=== PATIENT | male | born 1945 | race Caucasian/White ===

== ENCOUNTER 2016-12-19 10:00 | Observation (INO) | payer MEDICARE, BC ==
[2016-12-19] MEDS ORDERED: Aspirin 81 MG Tab.Chew PO ONE (10:11)
[2016-12-19] MEDS ORDERED: Sodium Chloride 0.9% 10 ML Syringe FLUSH PRN (10:11)
[2016-12-19] MEDS ORDERED: Sodium Chloride 0.9% 2.5 ML Syringe FLUSH PRN (10:11)
[2016-12-19] MEDS ORDERED: Sodium Chloride 0.9% 1,000 ML IV SCH (10:15)
--- NOTE | 2016-12-19 10:15 | EDM.PDOC ---
ED HPI GENERAL MEDICAL PROBLEM - General Chief Complaint: Chest Pain Stated Complaint: CHEST PAIN Time Seen by Provider: 12/19/16 10:01 - History of Present Illness INITIAL COMMENTS - FREE TEXT/NARRATIVE: HISTORY AND PHYSICAL: History of present illness: Patient 71-year-old white male past medical history significant for diabetes who has a undefined history of colonic disease causing diarrhea he sees a clinic and gets infusions monthly this condition initially caused a profound weight loss approximately 80 pounds pounds he has had improvement since therapy was initiated he denies history of known coronary artery disease denies history of stroke presents with a chief complaint of chest pain this woke him from sleep approximately 3 AM was described as sharp left-sided with associated shortness of breath there is no diaphoresis or palpitations are less proximal 10 minutes he had to subsequent brief episodes since upon arrival he is without pain or other symptomatology Review of systems: As per history of present illness and below otherwise all systems reviewed and negative. Past medical history: As per history of present illness and as reviewed below otherwise noncontributory. Surgical history: As per history of present illness and as reviewed below otherwise noncontributory. Social history: No reported history of drug or alcohol abuse. Family history: As per history of present illness and as reviewed below otherwise noncontributory. Physical exam: HEENT: Atraumatic, normocephalic, pupils reactive, negative for conjunctival pallor or scleral icterus, mucous membranes moist, throat clear, neck supple, nontender, trachea midline. Lungs: Clear to auscultation, breath sounds equal bilaterally, chest nontender. Heart: S1S2, regular, negative for clicks, rubs, or JVD. Abdomen: Soft, nondistended, nontender. Negative for masses or hepatosplenomegaly. Negative for costovertebral tenderness. Pelvis: Stable nontender. Genitourinary: Deferred. Rectal: Deferred. Extremities: Atraumatic, negative for cords or calf pain. Neurovascular unremarkable. Neuro: Awake, alert, oriented. Cranial nerves II through XII unremarkable. Cerebellum unremarkable. Motor and sensory unremarkable throughout. Exam nonfocal. Diagnostics: CBC CMP troponin PT/INR chest x-ray EKG Therapeutics: IV O2 monitor aspirin Impression: #1 chest pain #2 history diabetes Definitive disposition and diagnosis as appropriate pending reevaluation and review of above. - Related Data Allergies Allergy/AdvReac Type Severity Reaction Status Date / Time No Known Allergies Allergy Verified 12/19/16 10:09 Home Meds: Home Meds Escitalopram Oxalate 10 mg PO DAILY 09/02/14 [History] atorvaSTATin Calcium [Atorvastatin Calcium] 40 mg PO DAILY 09/02/14 [History] Dicyclomine [Bentyl] 10 mg PO Q4H PRN 12/19/16 [History] Esomeprazole [NexIUM] 40 mg PO ACBREAKFAST 12/19/16 [History] Ferrous Sulfate 325 mg PO TID 12/19/16 [History] Insulin Glarg,Human.Rec.Analog [LantUS Solostar] 50 units SUBCUT BEDTIME [History] Latanoprost 1 drop OP DAILY 12/19/16 [History] Lisinopril 10 mg PO DAILY 12/19/16 [History] Potassium Chloride 20 meq PO DAILY 12/19/16 [History] azaTHIOprine [Imuran] 50 mg PO DAILY 12/19/16 [History] predniSONE [Prednisone] 10 mg PO DAILY 12/19/16 [History] Social & Family History - Tobacco Use Smoking Status *Q: Never Smoker - Alcohol Use Days Per Week of Alcohol Use: 0 Number of Drinks Per Day: 0 Total Drinks Per Week: 0 - Recreational Drug Use Recreational Drug Use: No ED ROS GENERAL - Review of Systems Review Of Systems: ROS reveals no pertinent complaints other than HPI. ED EXAM, GENERAL - Physical Exam Exam: See Below (See dictation) Course - Vital Signs Last Recorded V/S: Last Vital Signs Temp 36.2 C 12/19/16 10:05 Pulse 88 12/19/16 10:47 Resp 15 12/19/16 10:47 BP 154/86 H 12/19/16 10:47 Pulse Ox 95 12/19/16 10:47 - Orders/Labs/Meds Orders: Active Orders 24 hr Category Date Time Status Cardiac Monitoring [RC] . DIRECTED Care 12/19/16 10:10 Active EKG 12 Lead [EKG Documentation Completion] [RC] STAT Care 12/19/16 10:10 Active EKG Documentation Completion [RC] STAT Care 12/19/16 10:10 Active Oxygen Therapy, ED [RC] ASDIRECTED Care 12/19/16 10:10 Active Pulse Oximetry [RC] ASDIRECTED Care 12/19/16 10:10 Active Sodium Chloride 0.9% [Normal Saline] 1,000 ml Med 12/19/16 10:15 Active IV STAT Sodium Chloride 0.9% [Saline Flush] Med 12/19/16 10:11 Active 10 ml FLUSH ASDIRECTED PRN Sodium Chloride 0.9% [Saline Flush] Med 12/19/16 10:11 Active 2.5 ml FLUSH ASDIRECTED PRN Saline Lock Insert [OM.PC] Stat Oth 12/19/16 10:10 Ordered Medication Orders Sodium Chloride (Normal Saline) 1,000 mls @ 125 mls/hr IV STAT HILDA Last Admin: 12/19/16 10:41 Dose: 125 mls/hr Sodium Chloride (Saline Flush) 10 ml FLUSH ASDIRECTED PRN PRN Reason: Keep Vein Open Last Admin: 12/19/16 10:41 Dose: 10 ml Sodium Chloride (Saline Flush) 2.5 ml FLUSH ASDIRECTED PRN PRN Reason: Keep Vein Open Last Admin: 12/19/16 10:41 Dose: 2.5 ml Labs: Laboratory Tests 12/19/16 12/19/16 12/19/16 Range/Units 10:02 10:02 10:02 WBC 7.44 (4.0-11.0) K/uL RBC 3.97 L (4.50-5.90) M/uL Hgb 13.1 (13.0-17.0) g/dL Hct 39.5 (38.0-50.0) % MCV 99.5 H (80.0-98.0) fL MCH 33.0 H (27.0-32.0) pg MCHC 33.2 (31.0-37.0) g/dL RDW Std Deviation 50.3 (28.0-62.0) fl RDW Coeff of Eh 14 (11.0-15.0) % Plt Count 126 L (150-400) K/uL MPV 11.70 (7.40-12.00) fL Add Manual Diff YES Neutrophils % (Manual) 55 (48.0-80.0) % Band Neutrophils % 3 % Lymphocytes % (Manual) 31 (16.0-40.0) % Monocytes % (Manual) 11 (0.0-15.0) % Absolute Seg Neuts 4.1 Band Neutrophils # 0.2 Lymphocytes # (Manual) 2.3 Monocytes # (Manual) 0.8 INR 1.12 H (0.86-1.11) Sodium 135 L (136-146) mmol/L Potassium 3.4 L (3.5-5.1) mmol/L Chloride 101 (98-110) mmol/L Carbon Dioxide 27 (21-31) mmol/L BUN 5 L (6.0-23.0) mg/dL Creatinine 0.8 (0.6-1.5) mg/dL Est Cr Clr Drug Dosing 94.33 mL/min Estimated GFR (MDRD) > 60.0 ml/min Glucose 131 H (60-110) mg/dL POC Glucose (60-110) mg/dL Calcium 8.5 L (8.8-10.8) mg/dL Total Bilirubin 0.6 (0.1-1.5) mg/dL AST 18 (5-40) IU/L ALT 18 (8-54) IU/L Alkaline Phosphatase 209 H (40-150) Troponin I (0.0-0.29) NG/ML Total Protein 8.2 H (6.0-8.0) g/dL Albumin 3.4 (3.4-4.8) g/dL Globulin 4.8 H (2.0-3.5) g/dL Albumin/Globulin Ratio 0.7 L (1.3-2.8) 12/19/16 12/19/16 Range/Units 10:02 10:06 WBC (4.0-11.0) K/uL RBC (4.50-5.90) M/uL Hgb (13.0-17.0) g/dL Hct (38.0-50.0) % MCV (80.0-98.0) fL MCH (27.0-32.0) pg MCHC (31.0-37.0) g/dL RDW Std Deviation (28.0-62.0) fl RDW Coeff of Eh (11.0-15.0) % Plt Count (150-400) K/uL MPV (7.40-12.00) fL Add Manual Diff Neutrophils % (Manual) (48.0-80.0) % Band Neutrophils % % Lymphocytes % (Manual) (16.0-40.0) % Monocytes % (Manual) (0.0-15.0) % Absolute Seg Neuts Band Neutrophils # Lymphocytes # (Manual) Monocytes # (Manual) INR (0.86-1.11) Sodium (136-146) mmol/L Potassium (3.5-5.1) mmol/L Chloride (98-110) mmol/L Carbon Dioxide (21-31) mmol/L BUN (6.0-23.0) mg/dL Creatinine (0.6-1.5) mg/dL Est Cr Clr Drug Dosing mL/min Estimated GFR (MDRD) ml/min Glucose (60-110) mg/dL POC Glucose 113 H (60-110) mg/dL Calcium (8.8-10.8) mg/dL Total Bilirubin (0.1-1.5) mg/dL AST (5-40) IU/L ALT (8-54) IU/L Alkaline Phosphatase (40-150) Troponin I < 0.10 (0.0-0.29) NG/ML Total Protein (6.0-8.0) g/dL Albumin (3.4-4.8) g/dL Globulin (2.0-3.5) g/dL Albumin/Globulin Ratio (1.3-2.8) Meds: Medications Generic Name Dose Route Start Last Admin Trade Name Freq PRN Reason Stop Dose Admin Sodium Chloride 1,000 mls @ 125 mls/hr 12/19/16 10:15 12/19/16 10:41 Normal Saline IV 125 mls/hr STAT HILDA Administration Sodium Chloride 10 ml 12/19/16 10:11 12/19/16 10:41 Saline Flush FLUSH 10 ml ASDIRECTED PRN Administration Keep Vein Open Sodium Chloride 2.5 ml 12/19/16 10:11 12/19/16 10:41 Saline Flush FLUSH 2.5 ml ASDIRECTED PRN Administration Keep Vein Open Discontinued Medications Generic Name Dose Route Start Last Admin Trade Name Freq PRN Reason Stop Dose Admin Aspirin 324 mg 12/19/16 10:11 12/19/16 10:40 Aspirin PO 12/19/16 10:12 324 mg ONETIME ONE Administration Departure - Departure Time of Disposition: 11:56 Disposition: Refer to Observation Condition: Good Clinical Impression: Chest pain - Discharge Information Referrals: PCP,None [Primary Care Provider] - Forms: ED Department Discharge - My Orders Last 24 Hours: My Active Orders 12/19/16 10:10 Cardiac Monitoring [RC] . DIRECTED EKG 12 Lead [EKG Documentation Completion] [RC] STAT EKG Documentation Completion [RC] STAT Oxygen Therapy, ED [RC] ASDIRECTED Pulse Oximetry [RC] ASDIRECTED Saline Lock Insert [OM.PC] Stat 12/19/16 10:11 Sodium Chloride 0.9% [Saline Flush] 10 ml FLUSH ASDIRECTED PRN Sodium Chloride 0.9% [Saline Flush] 2.5 ml FLUSH ASDIRECTED PRN 12/19/16 10:15 Sodium Chloride 0.9% [Normal Saline] 1,000 ml IV STAT - Assessment/Plan Last 24 Hours: My Active Orders 12/19/16 10:10 Cardiac Monitoring [RC] . DIRECTED EKG 12 Lead [EKG Documentation Completion] [RC] STAT EKG Documentation Completion [RC] STAT Oxygen Therapy, ED [RC] ASDIRECTED Pulse Oximetry [RC] ASDIRECTED Saline Lock Insert [OM.PC] Stat 12/19/16 10:11 Sodium Chloride 0.9% [Saline Flush] 10 ml FLUSH ASDIRECTED PRN Sodium Chloride 0.9% [Saline Flush] 2.5 ml FLUSH ASDIRECTED PRN 12/19/16 10:15 Sodium Chloride 0.9% [Normal Saline] 1,000 ml IV STAT
[2016-12-19 11:04] LABS: CHLORIDE,CL 101 mmol/L (98-110); SODIUM,NA 135 mmol/L (136-146)
--- NOTE | 2016-12-19 11:17 | CR ---
EXAMINATION: Portable chest radiograph. HISTORY: Shortness of breath. FINDINGS: The trachea is midline. The cardiomediastinal silhouette is within normal limits. No pulmonary infil trates, effusions or pneumothorax. Osseous structures appear unremarkable. IMPRESSION: No acute cardiopulmonary process.
[2016-12-19] MEDS ORDERED: Acetaminophen 325 MG Tab PO PRN (12:37)
[2016-12-19] MEDS ORDERED: Dicyclomine 10 MG Cap PO PRN (12:44)
--- NOTE | 2016-12-19 12:48 | PCM.HP ---
H&P History of Present Illness - General Date of Service: 12/19/16 Admit Problem/Dx: Chest pain Source of Information: Patient History Limitations: Reports: No Limitations - History of Present Illness Initial Comments - Free Text/Narative: This 71 year old male with pmh of HTN, Dm type 2, and ulcerative colitis presented to the ED this morning with complaints of L sided chest pain. He reported this pain started at 3 am, waking him from sleep. He said it radiated to his L neck. He denies SOB, palpitations, diaphoresis or N/V. He took ASA when he woke up and attempted to fall back asleep but couldn't and decided to come in to be evaluated. He reports he has had a stress test many years ago here with Dr. Vanessa. He denies any stents or CAD. He is seeing a specialist in [place], [place] for care with Ulcerative colitis and continues to use Dr. Vanessa as PCP in [place], [place]. He denies tobacco use and no alcohol use for 20+ years and no recreational drug use. He does report having a sore tooth on the L lower mouth, slight tenderness and swelling to L mandible. He reports he plans on scheduling an appointment with his Dentist tomorrow. His reports his liver function were elevated with his last labwork. He also reports A1c and BS have been off because of Prednisone tapers he has been on for ulcerative colitis. They state his BS are becoming more stable as of recently. In the ED EKG SR with no ST segment changes. CXR negative. BS 131, Na 135, Platelets 126, INR 1.12. He was admitted for observation for chest pain R/O ACS. chest Pain Score (Numeric/FACES): 3 - Related Data Allergies/Adverse Reactions: Allergies Allergy/AdvReac Type Severity Reaction Status Date / Time No Known Allergies Allergy Verified 12/19/16 10:09 Home Medications: Home Meds Escitalopram Oxalate 10 mg PO DAILY 09/02/14 [History] atorvaSTATin Calcium [Atorvastatin Calcium] 40 mg PO DAILY 09/02/14 [History] Dicyclomine [Bentyl] 10 mg PO Q4H PRN 12/19/16 [History] Esomeprazole [NexIUM] 40 mg PO ACBREAKFAST 12/19/16 [History] Ferrous Sulfate 325 mg PO TID 12/19/16 [History] Insulin Glarg,Human.Rec.Analog [LantUS Solostar] 50 units SUBCUT BEDTIME [History] Latanoprost 1 drop OP DAILY 12/19/16 [History] Lisinopril 10 mg PO DAILY 12/19/16 [History] Potassium Chloride 20 meq PO DAILY 12/19/16 [History] azaTHIOprine [Imuran] 50 mg PO DAILY 12/19/16 [History] predniSONE [Prednisone] 10 mg PO DAILY 12/19/16 [History] Past Medical History - Past Health History Medical/Surgical History: Denies Medical/Surgical History HEENT History: Reports: Impaired Vision Other HEENT History: wears glasses Cardiovascular History: Reports: High Cholesterol, Hypertension. Denies: Afib, Blood Clots/VTE/DVT, Heart Murmur, NV Respiratory History: Reports: None. Denies: COPD, PE, SOB Gastrointestinal History: Reports: Inflammatory Bowel Disease (Ulcerative Colitis) Genitourinary History: Reports: None. Denies: Chronic Renal Insuffiency Musculoskeletal History: Reports: Arthritis Neurological History: Denies: CVA, TIA Endocrine/Metabolic History: Reports: Diabetes, Type II. Denies: Hypothyroidism Social & Family History - Family History Family Medical History: Noncontributory - Tobacco Use Smoking Status *Q: Never Smoker - Alcohol Use Alcohol Use History: No Days Per Week of Alcohol Use: 0 Number of Drinks Per Day: 0 Total Drinks Per Week: 0 - Recreational Drug Use Recreational Drug Use: No - Living Situation & Occupation Living situation: Reports: Occupation: Retired H&P Review of Systems - Review of Systems: Review Of Systems: See Below General: Reports: No Symptoms. Denies: Fever, Chills, Weakness HEENT: Reports: Glasses, Other (L lower jaw pain, "abscess tooth" has appointment with Dentist.). Denies: Headaches, Sinus Congestion Pulmonary: Reports: No Symptoms. Denies: Shortness of Breath, Wheezing, Pleuritic Chest Pain, Cough, Sputum Cardiovascular: Reports: Chest Pain (had prior to arrival to ED, now no longer has). Denies: Palpitations, Edema, Syncope, Blood Pressure Problem Gastrointestinal: Reports: Diarrhea. Denies: Abdominal Pain, Black Stool, Bloody Stool, Nausea, Vomiting Genitourinary: Reports: No Symptoms. Denies: Dysuria, Frequency, Burning Skin: Reports: No Symptoms Psychiatric: Reports: No Symptoms. Denies: Confusion Neurological: Reports: No Symptoms. Denies: Headache, Tremors, Trouble Speaking Hematologic/Lymphatic: Reports: No Symptoms Immunologic: Reports: No Symptoms Exam - Exam Exam: See Below - Vital Signs Vital Signs: Last Vital Signs Temp 97.1 F 12/19/16 10:05 Pulse 85 12/19/16 12:20 Resp 14 12/19/16 12:20 BP 135/83 12/19/16 12:20 Pulse Ox 94 L 12/19/16 12:20 Weight: 90.1 kg - Exam Quality Assessment: Supplemental Oxygen, DVT Prophylaxis General: Alert, Oriented, Cooperative HEENT: Conjunctiva Clear, Nares Patent, Other (swelling noted to L face and lower jaw, tenderness to palpation, reports tooth pain and needing to see Dentist.) Neck: Supple, Trachea Midline Lungs: Clear to Auscultation, Normal Respiratory Effort Cardiovascular: Regular Rate, Regular Rhythm, Normal S1, Normal S2. No: Systolic Murmur, Rubs, Gallop/S3 GI/Abdominal Exam: Normal Bowel Sounds, Soft, Non-Tender, No Organomegaly, No Distention, No Abnormal Bruit, No Mass, Pelvis Stable Extremities: Normal Inspection, Normal Range of Motion, Non-Tender, No Pedal Edema, Normal Capillary Refill Neuro Extensive - Mental Status: Alert, Oriented x3, Normal Mood/Affect, Normal Cognition, Memory Intact Psychiatric: Alert, Normal Affect, Normal Mood - Patient Data Result Diagrams: 12/19/16 10:02 12/19/16 10:02 *Q Meaningful Use (ADM) - VTE *Q VTE Criteria *Q: - VTE Risk Assess *Q Each Risk Factor Represents 1 Point: History Inflammatory Bowel Disease Total Score 1 Point Risk Factors: 1 Each Risk Factor Represents 2 Points: Age 60 - 74 Years Total Score 2 Point Risk Factors: 2 Each Risk Factor Represents 3 Points: None Total Score 3 Point Risk Factors: 0 Each Risk Factor Represents 5 Points: None Total Score 5 Point Risk Factors: 0 Venous Thromboembolism Risk Factor Score *Q: 3 - Stroke *Q Stroke Criteria *Q: - AMI *Q AMI Criteria *Q: - Problem List (1) Chest pain SNOMED Code(s): 56984413 ICD Code: R07.9 - CHEST PAIN, UNSPECIFIED Status: Acute Current Visit: Yes Qualifiers: Chest pain type: other chest pain Qualified Code(s): R07.89 - Other chest pain; R07.8 - Other chest pain (2) HTN (hypertension) SNOMED Code(s): 61902141 ICD Code: I10 - ESSENTIAL (PRIMARY) HYPERTENSION Status: Chronic Current Visit: Yes Qualifiers: Hypertension type: essential hypertension Qualified Code(s): I10 - Essential (primary) hypertension (3) DM type 2 (diabetes mellitus, type 2) SNOMED Code(s): 14490137 ICD Code: E11.9 - TYPE 2 DIABETES MELLITUS WITHOUT COMPLICATIONS Status: Chronic Current Visit: Yes Qualifiers: Diabetes mellitus complication status: without complication Diabetes mellitus custodial insulin use: with oysterman use Qualified Code(s): E11.9 - Type 2 diabetes mellitus without complications; Z79.4 - penitentiary (current) use of insulin (4) Ulcerative colitis SNOMED Code(s): 16076255 ICD Code: K51.90 - ULCERATIVE COLITIS, UNSPECIFIED, WITHOUT COMPLICATIONS Status: Chronic Current Visit: Yes Qualifiers: Ulcerative colitis location: unspecified ulcerative colitis location Digestive disease complication type: without complication Qualified Code(s): K51.90 - Ulcerative colitis, unspecified, without complications Problem List Initiated/Reviewed/Updated: Yes Orders Last 24hrs: Active Orders 24 hr Category Date Time Status Intake and Output [RC] QSHIFT Care 12/19/16 12:38 Active Oxygen Therapy [RC] PRN Care 12/19/16 12:37 Active Telemetry Monitoring [Cardiac Monitoring] [RC] . Care 12/19/16 12:40 Active DIRECTED Up ad Judi [RC] ASDIRECTED Care 12/19/16 12:37 Active VTE/DVT Education [RC] PER UNIT ROUTINE Care 12/19/16 12:37 Active Vital Signs [RC] Q4H Care 12/19/16 12:37 Active Heart Healthy Diet [DIET] Diet 12/19/16 Dinner Active GLYCOSYLATED HEMOGLOBIN,HGBA1C [CHEM] Routine Lab 12/19/16 10:02 Received LIPID PANEL [CHEM] Routine Lab 12/19/16 10:02 Received TROPONIN I [CHEM] Q6H Lab 12/19/16 16:00 Ordered TROPONIN I [CHEM] Q6H Lab 12/19/16 22:00 Ordered Acetaminophen [Tylenol] Med 12/19/16 12:37 Ordered 650 mg PO Q4H PRN Dicyclomine [Bentyl] Med 12/19/16 12:44 Ordered 10 mg PO Q4H PRN Escitalopram [Lexapro] Med 12/20/16 09:00 Ordered 10 mg PO DAILY Esomeprazole Med 12/20/16 07:30 Ordered 40 mg PO ACBREAKFAST Ferrous Sulfate Med 12/19/16 14:00 Ordered 325 mg PO TID Insulin Glarg,Human.Rec.Analog [LantUS Solostar] Med 12/19/16 21:00 Ordered 50 units SUBCUT BEDTIME Latanoprost [Xalatan 0.005% Ophth Soln] Med 12/20/16 09:00 Ordered 1 drop EYEBOTH DAILY Lisinopril [Prinivil] Med 12/20/16 09:00 Ordered 10 mg PO DAILY Ondansetron [Zofran] Med 12/19/16 12:37 Ordered 4 mg IVPUSH Q4H PRN Potassium Chloride [Potassium Chloride] Med 12/20/16 09:00 Ordered 20 meq PO DAILY atorvaSTATin [Lipitor] Med 12/20/16 09:00 Ordered 40 mg PO DAILY azaTHIOprine [Imuran] Med 12/20/16 09:00 Ordered 50 mg PO DAILY predniSONE Med 12/20/16 09:00 Ordered 10 mg PO DAILY Resuscitation Status Routine Resus Stat 12/19/16 12:37 Ordered Medication Orders Acetaminophen (Tylenol) 650 mg PO Q4H PRN PRN Reason: Pain Dicyclomine HCl (Bentyl) 10 mg PO Q4H PRN PRN Reason: irritable bowel Escitalopram Oxalate (Lexapro) 10 mg PO DAILY HILDA Ferrous Sulfate (Ferrous Sulfate) 325 mg PO TID HILDA Sodium Chloride (Normal Saline) 1,000 mls @ 125 mls/hr IV STAT HILDA Last Admin: 12/19/16 10:41 Dose: 125 mls/hr Insulin Glargine (Lantus Solostar) 50 units SUBCUT BEDTIME HILDA Non-Formulary Medication (Esomeprazole) 40 mg PO ACBREAKFAST IHLDA Non-Formulary Medication (Potassium Chloride [Potassium Chloride]) 20 meq PO DAILY HILDA Ondansetron HCl (Zofran) 4 mg IVPUSH Q4H PRN PRN Reason: Nausea Sodium Chloride (Saline Flush) 10 ml FLUSH ASDIRECTED PRN PRN Reason: Keep Vein Open Last Admin: 12/19/16 10:41 Dose: 10 ml Sodium Chloride (Saline Flush) 2.5 ml FLUSH ASDIRECTED PRN PRN Reason: Keep Vein Open Last Admin: 12/19/16 10:41 Dose: 2.5 ml Assessment/Plan Comment:: This 71 year old male admitted with chest pain R/O ACS 1. Chest pain: Will trend troponins, monitor on telemetry and obtain lipid panel and A1c. Will plan for setting up stress test as outpatient evaluation upon discharge, he would like to set up a physician here in [place] to be PCP as well. 2. L tooth pain: will start Clindamycin 450 mg TID and continue this until he is seen by Dentist for further cares. 3. DM Type 2: Monitor BS TIDAC, does take Lantus 25 units at breakfast and at bedtime, will continue this. 4. HTN: Comntinue home medications VTE prophylaxis: SCDs Dispo: Likely discharge in am.
[2016-12-19] MEDS: Ferrous Sulfate 325 MG Tab PO SCH ×2 (13:08→21:22)
[2016-12-19] MEDS: Clindamycin HCl 150 MG Cap PO SCH ×2 (14:22→21:22)
[2016-12-19] MEDS: Ondansetron 4 MG/2 ML SDV IVPUSH PRN (17:03)
[2016-12-19] MEDS ORDERED: Insulin Glargine,Human Rec. Analog 100 Units/ML 3 ML Pen SUBCUT SCH (21:00)
[2016-12-19] MEDS: Insulin Glargine,Human Rec. Analog 100 Units/ML 3 ML Pen SUBCUT SCH (21:25)
[2016-12-20 05:56] LABS: CHLORIDE,CL 101 mmol/L (98-110); SODIUM,NA 136 mmol/L (136-146)
[2016-12-20] MEDS: Clindamycin HCl 150 MG Cap PO SCH (06:34)
[2016-12-20] MEDS: Ferrous Sulfate 325 MG Tab PO SCH (06:34)
[2016-12-20] MEDS ORDERED: Omeprazole 20 MG Cap.CR PO SCH (07:30)
[2016-12-20] MEDS: Ondansetron 4 MG/2 ML SDV IVPUSH PRN (07:56)
[2016-12-20] MEDS: Potassium Chloride 20 MEQ Tab.ER PO SCH ×2 (08:46→09:40)
[2016-12-20] MEDS: predniSONE 10 MG Tab PO SCH ×2 (08:47→09:41)
[2016-12-20] MEDS ORDERED: Lisinopril 10 MG Tab PO SCH (09:00)
[2016-12-20] MEDS ORDERED: Escitalopram 10 MG Tab PO SCH (09:00)
[2016-12-20] MEDS ORDERED: Latanoprost 0.005% Ophth Soln 2.5 ML Bottle EYEBOTH SCH ×2 (09:00→21:00)
[2016-12-20] MEDS: Insulin Glargine,Human Rec. Analog 100 Units/ML 3 ML Pen SUBCUT SCH (09:00)
[2016-12-20] MEDS ORDERED: atorvaSTATin 10 MG Tab PO SCH (09:00)
--- NOTE | 2016-12-20 09:13 | PCM.DCSUM1 ---
Discharge Summary - Hospital Course Brief History: This 71 year old male with pmh of HTN, Dm type 2, and ulcerative colitis presented to the ED 12/19/2016 morning with complaints of L sided chest pain. He reported this pain started at 3 am, waking him from sleep. He said it radiated to his L neck. He denies SOB, palpitations, diaphoresis or N/V. He took ASA when he woke up and attempted to fall back asleep but couldn't and decided to come in to be evaluated. He reported he had a stress test many years ago here with Dr. Vanessa. He denies any stents or CAD. He is seeing a specialist in [place], [place] for care with Ulcerative colitis and continues to use Dr. Vanessa as PCP in [place], [place]. He denies tobacco use and no alcohol use for 20+ years and no recreational drug use. He does report having a sore tooth on the L lower mouth, slight tenderness and swelling to L mandible. He reports he plans on scheduling an appointment with his Dentist tomorrow. His reports his liver function were elevated with his last labwork and they are monitoring these. He also reports A1c and BS have been off because of Prednisone tapers he has been on for ulcerative colitis. They state his BS are becoming more stable as of recently. In the ED EKG SR with no ST segment changes. CXR negative. BS 131, Na 135, Platelets 126, INR 1.12. He was admitted for observation for chest pain R/O ACS. - Discharge Data Discharge Date: 12/20/16 Discharge Disposition: Home, Self-Care 01 Condition: Good - Discharge Diagnosis/Problem(s) (1) Chest pain SNOMED Code(s): 35624090 ICD Code: R07.9 - CHEST PAIN, UNSPECIFIED Status: Resolved Current Visit : Yes Qualifiers: Chest pain type: other chest pain Qualified Code(s): R07.89 - Other chest pain; R07.8 - Other chest pain (2) HTN (hypertension) SNOMED Code(s): 69525083 ICD Code: I10 - ESSENTIAL (PRIMARY) HYPERTENSION Status: Chronic Current Visit: Yes Qualifiers: Hypertension type: essential hypertension Qualified Code(s): I10 - Essential (primary) hypertension (3) DM type 2 (diabetes mellitus, type 2) SNOMED Code(s): 51756954 ICD Code: E11.9 - TYPE 2 DIABETES MELLITUS WITHOUT COMPLICATIONS Status: Chronic Current Visit: Yes Qualifiers: Diabetes mellitus complication status: without complication Diabetes mellitus intermediate frame tender insulin use: with fdc use Qualified Code(s): E11.9 - Type 2 diabetes mellitus without complications; Z79.4 - residential (current) use of insulin (4) Ulcerative colitis SNOMED Code(s): 88703494 ICD Code: K51.90 - ULCERATIVE COLITIS, UNSPECIFIED, WITHOUT COMPLICATIONS Status: Chronic Current Visit: Yes Qualifiers: Ulcerative colitis location: unspecified ulcerative colitis location Digestive disease complication type: without complication Qualified Code(s): K51.90 - Ulcerative colitis, unspecified, without complications - Discharge Plan Prescriptions/Med Rec: Clindamycin HCl [Cleocin] 450 mg PO Q8H #63 cap Home Medications: Home Meds Escitalopram Oxalate 10 mg PO DAILY 09/02/14 [History] atorvaSTATin Calcium [Atorvastatin Calcium] 40 mg PO DAILY 09/02/14 [History] Dicyclomine [Bentyl] 10 mg PO Q4H PRN 12/19/16 [History] Esomeprazole [NexIUM] 40 mg PO ACBREAKFAST 12/19/16 [History] Ferrous Sulfate 325 mg PO TID 12/19/16 [History] Insulin Glarg,Human.Rec.Analog [LantUS Solostar] 50 units SUBCUT BEDTIME [History] Latanoprost 1 drop OP BEDTIME 12/19/16 [History] Lisinopril 10 mg PO DAILY 12/19/16 [History] Potassium Chloride 20 meq PO WITHLUNCH 12/19/16 [History] azaTHIOprine [Imuran] 50 mg PO WITHLUNCH 12/19/16 [History] predniSONE [Prednisone] 10 mg PO WITHDINNER 12/19/16 [History] Clindamycin HCl [Cleocin] 450 mg PO Q8H #63 cap 12/20/16 [Rx] Patient Handouts: Chest Wall Pain, [id number] Referrals: Fabian Hardy MD [Physician] - 12/31/16 1:00 pm - Discharge Summary/Plan Comment DC Time >30 min.: No Discharge Summary/Plan Comment: Discharge Diagnoses Chest pain R/O ACS- resolved and ruled out L tooth abscess HTN DM type 2 Ulcerative colitis Waqar was admitted and monitored for chest pain, ACS ruled out. Troponins negative and telemetry showed no ST segment changes. He has had no further chest pain. I will arrange outpatient follow up and arrange outpatient stress test. He has appointment with his dentist on Friday, I will continue Clindamycin until that time for likely abscess tooth to L lower jaw. He was encouraged to return to ED or clinic if concerns should arise. - General Info Date of Service: 12/20/16 Admission Dx/Problem (Free Text: Chest pain Subjective Update: Feeling better today, slight nausea with pills this morning. Denies chest pain since admission, no SOB or palpitations. tooth feels better and he feels swelling is going down. Functional Status: Reports: Pain Controlled, Tolerating Diet, Ambulating, Urinating - Review of Systems General: Reports: No Symptoms. Denies: Fever Pulmonary: Reports: No Symptoms. Denies: Shortness of Breath, Cough, Sputum Cardiovascular: Reports: No Symptoms. Denies: Chest Pain, Palpitations, Edema Gastrointestinal: Reports: No Symptoms. Denies: Abdominal Pain, Nausea, Vomiting Genitourinary: Reports: No Symptoms. Denies: Dysuria, Frequency, Burning Musculoskeletal: Reports: No Symptoms Skin: Reports: No Symptoms Neurological: Reports: No Symptoms Psychiatric: Reports: No Symptoms - Patient Data Vitals - Most Recent: Last Vital Signs Temp 99.2 F 12/20/16 04:00 Pulse 99 12/20/16 04:00 Resp 18 12/20/16 04:00 BP 126/64 12/20/16 08:50 Pulse Ox 90 L 12/20/16 04:00 Weight - Most Recent: 90.1 kg I&O - Last 24 hours: Intake & Output 12/19/16 12/20/16 12/20/16 22:59 06:59 14:59 Intake Total 400 400 Output Total 250 550 Balance 150 -150 Lab Results - Last 24 hrs: Laboratory Results - last 24 hr 12/19/16 12/19/16 12/19/16 Range/Units 14:08 16:39 21:27 Sodium (136-146) mmol/L Potassium (3.5-5.1) mmol/L Chloride (98-110) mmol/L Carbon Dioxide (21-31) mmol/L BUN (6.0-23.0) mg/dL Creatinine (0.6-1.5) mg/dL Est Cr Clr Drug Dosing mL/min Estimated GFR (MDRD) ml/min Glucose (60-110) mg/dL POC Glucose 131 H 161 H (60-110) mg/dL Calcium (8.8-10.8) mg/dL Total Bilirubin (0.1-1.5) mg/dL AST (5-40) IU/L ALT (8-54) IU/L Alkaline Phosphatase (40-150) Troponin I < 0.10 (0.0-0.29) NG/ML Total Protein (6.0-8.0) g/dL Albumin (3.4-4.8) g/dL Globulin (2.0-3.5) g/dL Albumin/Globulin Ratio (1.3-2.8) 12/19/16 12/20/16 12/20/16 Range/Units 22:12 05:20 06:32 Sodium 136 (136-146) mmol/L Potassium 3.5 (3.5-5.1) mmol/L Chloride 101 (98-110) mmol/L Carbon Dioxide 29 (21-31) mmol/L BUN 6 (6.0-23.0) mg/dL Creatinine 0.8 (0.6-1.5) mg/dL Est Cr Clr Drug Dosing 94.33 mL/min Estimated GFR (MDRD) > 60.0 ml/min Glucose 150 H (60-110) mg/dL POC Glucose 138 H (60-110) mg/dL Calcium 7.9 L (8.8-10.8) mg/dL Total Bilirubin 0.7 (0.1-1.5) mg/dL AST 19 (5-40) IU/L ALT 17 (8-54) IU/L Alkaline Phosphatase 208 H (40-150) Troponin I < 0.10 (0.0-0.29) NG/ML Total Protein 7.2 (6.0-8.0) g/dL Albumin 3.1 L (3.4-4.8) g/dL Globulin 4.1 H (2.0-3.5) g/dL Albumin/Globulin Ratio 0.8 L (1.3-2.8) Med Orders - Current: Current Medications Acetaminophen (Tylenol) 650 mg PO Q4H PRN PRN Reason: Pain Atorvastatin Calcium (Lipitor) 40 mg PO DAILY HILDA Azathioprine (Imuran) 50 mg PO WITHLUNCH ON LICENSE OF [facility] Clindamycin HCl (Cleocin) 450 mg PO Q8H ON LICENSE OF [facility] Last Admin: 12/20/16 06:34 Dose: 450 mg Dicyclomine HCl (Bentyl) 10 mg PO Q4H PRN PRN Reason: irritable bowel Escitalopram Oxalate (Lexapro) 10 mg PO DAILY ON LICENSE OF [facility] Last Admin: 12/20/16 08:47 Dose: 10 mg Ferrous Sulfate (Ferrous Sulfate) 325 mg PO TID ON LICENSE OF [facility] Last Admin: 12/20/16 06:34 Dose: 325 mg Insulin Glargine (Lantus Solostar) 25 units SUBCUT BID@0900,2100 ON LICENSE OF [facility] Last Admin: 12/20/16 09:00 Dose: 25 unit Latanoprost (Xalatan 0.005% Ophth Soln) 0 ml EYEBOTH BEDTIME ON LICENSE OF [facility] Lisinopril (Prinivil) 10 mg PO DAILY ON LICENSE OF [facility] Last Admin: 12/20/16 08:50 Dose: 10 mg Omeprazole (Omeprazole) 40 mg PO ACBREAKFAST ON LICENSE OF [facility] Last Admin: 12/20/16 06:34 Dose: 40 mg Ondansetron HCl (Zofran) 4 mg IVPUSH Q4H PRN PRN Reason: Nausea Last Admin: 12/20/16 07:56 Dose: 4 mg Potassium Chloride (Klor-Con M20) 20 meq PO WITHLUNCH ON LICENSE OF [facility] Prednisone (Prednisone) 10 mg PO WITHDINNER ON LICENSE OF [facility] Sodium Chloride (Saline Flush) 10 ml FLUSH ASDIRECTED PRN PRN Reason: Keep Vein Open Last Admin: 12/19/16 10:41 Dose: 10 ml Sodium Chloride (Saline Flush) 2.5 ml FLUSH ASDIRECTED PRN PRN Reason: Keep Vein Open Last Admin: 12/19/16 10:41 Dose: 2.5 ml Discontinued Medications Aspirin (Aspirin) 324 mg PO ONETIME ONE Stop: 12/19/16 10:12 Last Admin: 12/19/16 10:40 Dose: 324 mg Atorvastatin Calcium (Lipitor) 40 mg PO DAILY ON LICENSE OF [facility] Last Admin: 12/20/16 08:45 Dose: 40 mg Azathioprine (Imuran) 50 mg PO DAILY ON LICENSE OF [facility] Sodium Chloride (Normal Saline) 1,000 mls @ 125 mls/hr IV STAT ON LICENSE OF [facility] Last Admin: 12/19/16 10:41 Dose: 125 mls/hr Insulin Glargine (Lantus Solostar) 50 units SUBCUT BEDTIME HILDA Latanoprost (Xalatan 0.005% Ophth Soln) 2.5 ml EYEBOTH DAILY HILDA Potassium Chloride (Klor-Con M20) 20 meq PO DAILY HILDA Prednisone (Prednisone) 10 mg PO DAILY HILDA - Exam General: Reports: Alert, Oriented, Cooperative, No Acute Distress HEENT: Reports: Mucous Membr. Moist/[place], Other (Sweling to L mandible improved slightly, less tender and more soft.) Neck: Reports: Supple Lungs: Reports: Clear to Auscultation, Normal Respiratory Effort Cardiovascular: Reports: Regular Rate, Regular Rhythm GI/Abdominal Exam: Normal Bowel Sounds, Soft, Non-Tender, No Organomegaly, No Distention, No Abnormal Bruit, No Mass, Pelvis Stable Skin: Reports: Warm, Dry, Intact Neurological: Reports: No New Focal Deficit Psy/Mental Status: Reports: Alert, Normal Affect, Normal Mood *Q Meaningful Use (DIS) - VTE *Q VTE Criteria *Q: - Stroke *Q Stroke Criteria *Q: - AMI *Q AMI Criteria *Q:
[2016-12-20 09:19] VITALS: BP 123/64
[2016-12-20] MEDS ORDERED: Potassium Chloride 20 MEQ Tab.ER PO SCH (12:00)
[2016-12-20] MEDS ORDERED: predniSONE 10 MG Tab PO SCH (17:30)
[2016-12-21] MEDS ORDERED: atorvaSTATin 40 MG Tab PO SCH (09:00)
== END 2016-12-20 11:25 | disposition home or self-care (01) ==
LOC: MW.ED 10:00 → MW.MS 12:32
PROVIDERS: ADMIT Internal Medicine; ATTEND Internal Medicine
DX: R07.89 Other chest pain (principal); I10 Essential (primary) hypertension; E11.9 Type 2 diabetes mellitus without complications; K51.90 Ulcerative colitis, unspecified, without complications; K04.7 Periapical abscess without sinus; E78.00 Pure hypercholesterolemia, unspecified; M19.90 Unspecified osteoarthritis, unspecified site; Z79.4 Long term (current) use of insulin; Z79.52 Long term (current) use of systemic steroids; Z79.899 Other long term (current) drug therapy
CPT/HCPCS: 36415; 71010; 80053; 80061; 82962; 83036; 84484; 85025; 85610; 93005; 96360; 96361; 99285; A9270; J2405; J7040; 96374; 96376; 99283; G0378

== ENCOUNTER 2018-07-15 12:28 | Observation (INO) | payer OTHER, MEDICARE, BC ==
[2018-07-15] MEDS ORDERED: Sodium Chloride 0.9% 10 ML Syringe FLUSH PRN (12:30)
[2018-07-15] MEDS ORDERED: Sodium Chloride 0.9% 1,000 ML IV ONE (12:30)
[2018-07-15] MEDS ORDERED: Sodium Chloride 0.9% 2.5 ML Syringe FLUSH PRN (12:30)
--- NOTE | 2018-07-15 13:24 | EDM.PDOC ---
ED HPI GENERAL MEDICAL PROBLEM - General Chief Complaint: Cardiovascular Problem Stated Complaint: Low BP Time Seen by Provider: 07/15/18 12:32 Source of Information: Reports: Provider History Limitations: Reports: No Limitations - History of Present Illness INITIAL COMMENTS - FREE TEXT/NARRATIVE: History of present illness: []Patient has a history of mild low dysplastic syndrome stopped chemotherapy in November. Is feeling poorly this morning with dizziness and weakness and saw Dr. Davis at the OR who found him to be hypotensive with a blood pressure 80/40 and sent him by private vehicle to the ED. He shouldn't was scheduled for transfusion at the oncology center tomorrow Review of systems: As per history of present illness and below otherwise all systems reviewed and negative. Past medical history: As per history of present illness and as reviewed below otherwise noncontributory. Surgical history: As per history of present illness and as reviewed below otherwise noncontributory. Social history: No reported history of drug or alcohol abuse. Family history: As per history of present illness and as reviewed below otherwise noncontributory. Physical exam: General: Well developed, cachectic, pale NAD HEENT: Atraumatic, normocephalic, pupils reactive, negative for conjunctival pallor or scleral icterus, mucous membranes dry, throat clear, neck supple, nontender, trachea midline. Lungs: Clear to auscultation, breath sounds equal bilaterally, chest nontender. Heart: S1S2, regular, negative for clicks, rubs, or JVD. Abdomen: NABS, Soft, nondistended, diffuse tenderness no rebound or guarding. Negative for masses or hepatosplenomegaly. Negative for costovertebral tenderness. Pelvis: Stable nontender. Genitourinary: Deferred. Rectal: Deferred. Extremities: Atraumatic, negative for cords or calf pain. Neurovascular unremarkable. Neuro: Awake, alert, oriented. Cranial nerves II through XII unremarkable. Cerebellum unremarkable. Motor and sensory unremarkable throughout. Exam nonfocal. Skin:warm and dry Diagnostics: CBC, chemistry Therapeutics: IV fluids ED Course: Dr. Velásquez for the hospitalist service consulted and will be admitting this patient blood and platelets is being arranged or transfusion Impression: MDS, chronic and pancytopenia with exacerbation, dehydration Prescriptions: Plan: Admit for blood products and IV fluid Definitive disposition and diagnosis as appropriate pending reevaluation and review of above. - Related Data Allergies Allergy/AdvReac Type Severity Reaction Status Date / Time No Known Allergies Allergy Verified 07/15/18 12:36 Home Meds: Home Meds Escitalopram Oxalate 10 mg PO DAILY 09/02/14 [History] atorvaSTATin Calcium [Atorvastatin Calcium] 40 mg PO DAILY 09/02/14 [History] Dicyclomine [Bentyl] 10 mg PO Q4H PRN 12/19/16 [History] Esomeprazole [NexIUM] 40 mg PO ACBREAKFAST 12/19/16 [History] Ferrous Sulfate 325 mg PO TID 12/19/16 [History] Insulin Glarg,Human.Rec.Analog [LantUS Solostar] 50 units SUBCUT BEDTIME [History] Latanoprost 1 drop OP BEDTIME 12/19/16 [History] Lisinopril 10 mg PO DAILY 12/19/16 [History] Potassium Chloride 20 meq PO WITHLUNCH 12/19/16 [History] azaTHIOprine [Imuran] 50 mg PO WITHLUNCH 12/19/16 [History] predniSONE [Prednisone] 10 mg PO WITHDINNER 12/19/16 [History] Clindamycin HCl [Cleocin] 450 mg PO Q8H #63 cap 12/20/16 [Rx] Past Medical History - Past Health History Medical/Surgical History: Denies Medical/Surgical History HEENT History: Reports: Impaired Vision Other HEENT History: wears glasses Cardiovascular History: Reports: High Cholesterol, Hypertension Respiratory History: Reports: None Gastrointestinal History: Reports: Inflammatory Bowel Disease Other Gastrointestinal History: colitis Genitourinary History: Reports: None Musculoskeletal History: Reports: Arthritis Psychiatric History: Reports: Anxiety, Depression Endocrine/Metabolic History: Reports: Diabetes, Type II Oncologic (Cancer) History: Reports: Other (See Below) Other Oncologic History: MDS in bone marrow & blood - Past Surgical History Neurological Surgical History: Reports: None Social & Family History - Family History Family Medical History: Noncontributory - Tobacco Use Smoking Status *Q: Never Smoker - Caffeine Use Caffeine Use: Reports: None - Recreational Drug Use Recreational Drug Use: No - Living Situation & Occupation Living situation: Reports: Occupation: Retired ED ROS GENERAL - Review of Systems Review Of Systems: ROS reveals no pertinent complaints other than HPI. ED EXAM, GENERAL - Physical Exam Exam: See Below (See history of present illness) Course - Vital Signs Last Recorded V/S: Last Vital Signs Temp 97.6 F 07/15/18 16:09 Pulse 86 07/15/18 16:09 Resp 18 07/15/18 16:09 BP 114/56 L 07/15/18 16:09 Pulse Ox 98 07/15/18 15:54 - Orders/Labs/Meds Orders: Active Orders 24 hr Category Date Time Status Blood Glucose Check, Bedside [RC] ONETIME Care 07/15/18 12:33 Active TYPE AND SCREEN [BBK] Stat Lab 07/15/18 12:50 Results Sodium Chloride 0.9% [Saline Flush] Med 07/15/18 12:30 Active 10 ml FLUSH ASDIRECTED PRN Sodium Chloride 0.9% [Saline Flush] Med 07/15/18 12:30 Active 2.5 ml FLUSH ASDIRECTED PRN Saline Lock Insert [OM.PC] Stat Oth 07/15/18 12:30 Ordered Medication Orders Acetaminophen (Tylenol) 650 mg PO Q4H PRN PRN Reason: Pain (mild 1-3) Potassium Chloride 40 meq/ (Sodium Chloride) 500 mls @ 125 mls/hr IV ONETIME ONE Stop: 07/15/18 19:39 Last Admin: 07/15/18 16:27 Dose: 125 mls/hr Sodium Chloride (Normal Saline) 1,000 mls @ 100 mls/hr IV ASDIRECTED HILDA Last Admin: 07/15/18 16:22 Dose: 100 mls/hr Insulin Aspart (Novolog) 0 unit SUBCUT TIDAC HILDA; Protocol Ondansetron HCl (Zofran) 4 mg IVPUSH Q4H PRN PRN Reason: nausea Pantoprazole Sodium (Protonix Iv) 40 mg IVPUSH Q24H HILDA Last Admin: 07/15/18 16:12 Dose: 40 mg Sodium Chloride (Saline Flush) 10 ml FLUSH ASDIRECTED PRN PRN Reason: Keep Vein Open Sodium Chloride (Saline Flush) 2.5 ml FLUSH ASDIRECTED PRN PRN Reason: Keep Vein Open Labs: Laboratory Tests 07/15/18 07/15/18 07/15/18 Range/Units 12:50 12:50 12:50 WBC 1.29 L (4.0-11.0) K/uL RBC 1.90 L (4.50-5.90) M/uL Hgb 5.6 L (13.0-17.0) g/dL Hct 17.0 L (38.0-50.0) % MCV 89.5 (80.0-98.0) fL MCH 29.5 (27.0-32.0) pg MCHC 32.9 (31.0-37.0) g/dL RDW Std Deviation 58.5 (28.0-62.0) fl RDW Coeff of Eh 18 H (11.0-15.0) % Plt Count 3 L* (150-400) K/uL Add Manual Diff YES Neutrophils % (Manual) 25 L (48.0-80.0) % Band Neutrophils % 1 % Lymphocytes % (Manual) 73 H (16.0-40.0) % Monocytes % (Manual) 1 (0.0-15.0) % Nucleated RBC % 1.3 /100WBC Absolute Seg Neuts 0.3 L (1.4-5.7) Band Neutrophils # 0 Lymphocytes # (Manual) 0.9 (0.6-2.4) Monocytes # (Manual) 0.0 (0.0-0.8) Nucleated RBCs # 0 K/uL Sodium 131 L (136-148) mmol/L Potassium 3.1 L (3.5-5.1) mmol/L Chloride 93 L (98-107) mmol/L Carbon Dioxide 29.1 (21.0-32.0) mmol/L BUN 11 (7.0-18.0) mg/dL Creatinine 1.0 (0.8-1.3) mg/dL Est Cr Clr Drug Dosing 62.37 mL/min Estimated GFR (MDRD) > 60.0 ml/min Glucose 270 H (74-106) mg/dL POC Glucose (60-110) mg/dL Calcium 8.2 L (8.5-10.1) mg/dL Magnesium (1.8-2.4) mg/dL Total Bilirubin 0.9 (0.2-1.0) mg/dL AST 15 (15-37) IU/L ALT 12 L (14-63) IU/L Alkaline Phosphatase 57 (46-116) U/L Total Protein 7.5 (6.4-8.2) g/dL Albumin 2.3 L (3.4-5.0) g/dL Globulin 5.2 H (2.6-4.0) g/dL Albumin/Globulin Ratio 0.4 L (0.9-1.6) Blood Type O POSITIVE Antibody Screen NEGATIVE Crossmatch See Detail 07/15/18 07/15/18 Range/Units 12:50 13:08 WBC (4.0-11.0) K/uL RBC (4.50-5.90) M/uL Hgb (13.0-17.0) g/dL Hct (38.0-50.0) % MCV (80.0-98.0) fL MCH (27.0-32.0) pg MCHC (31.0-37.0) g/dL RDW Std Deviation (28.0-62.0) fl RDW Coeff of Eh (11.0-15.0) % Plt Count (150-400) K/uL Add Manual Diff Neutrophils % (Manual) (48.0-80.0) % Band Neutrophils % % Lymphocytes % (Manual) (16.0-40.0) % Monocytes % (Manual) (0.0-15.0) % Nucleated RBC % /100WBC Absolute Seg Neuts (1.4-5.7) Band Neutrophils # Lymphocytes # (Manual) (0.6-2.4) Monocytes # (Manual) (0.0-0.8) Nucleated RBCs # K/uL Sodium (136-148) mmol/L Potassium (3.5-5.1) mmol/L Chloride (98-107) mmol/L Carbon Dioxide (21.0-32.0) mmol/L BUN (7.0-18.0) mg/dL Creatinine (0.8-1.3) mg/dL Est Cr Clr Drug Dosing mL/min Estimated GFR (MDRD) ml/min Glucose (74-106) mg/dL POC Glucose 251 H (60-110) mg/dL Calcium (8.5-10.1) mg/dL Magnesium 1.8 (1.8-2.4) mg/dL Total Bilirubin (0.2-1.0) mg/dL AST (15-37) IU/L ALT (14-63) IU/L Alkaline Phosphatase (46-116) U/L Total Protein (6.4-8.2) g/dL Albumin (3.4-5.0) g/dL Globulin (2.6-4.0) g/dL Albumin/Globulin Ratio (0.9-1.6) Blood Type Antibody Screen Crossmatch Meds: Medications Generic Name Dose Route Start Last Admin Trade Name Chayo PRN Reason Stop Dose Admin Acetaminophen 650 mg 07/15/18 14:40 Tylenol PO Q4H PRN Pain (mild 1-3) Potassium Chloride 40 meq/ 500 mls @ 125 mls/hr 07/15/18 15:40 07/15/18 16:27 Sodium Chloride IV 07/15/18 19:39 125 mls/hr ONETIME ONE Administration Sodium Chloride 1,000 mls @ 100 mls/hr 07/15/18 15:51 07/15/18 16:22 Normal Saline IV 100 mls/hr ASDIRECTED HILDA Administration Insulin Aspart 0 unit 07/15/18 17:00 Novolog SUBCUT TIDAC [facility] Protocol Ondansetron HCl 4 mg 07/15/18 14:40 Zofran IVPUSH Q4H PRN nausea Pantoprazole Sodium 40 mg 07/15/18 15:30 07/15/18 16:12 Protonix Iv IVPUSH 40 mg Q24H HILDA Administration Sodium Chloride 10 ml 07/15/18 12:30 Saline Flush FLUSH ASDIRECTED PRN Keep Vein Open Sodium Chloride 2.5 ml 07/15/18 12:30 Saline Flush FLUSH ASDIRECTED PRN Keep Vein Open Discontinued Medications Generic Name Dose Route Start Last Admin Trade Name Chayo PRN Reason Stop Dose Admin Sodium Chloride 1,000 mls @ 999 mls/hr 07/15/18 12:30 07/15/18 13:25 Normal Saline IV 07/15/18 13:30 999 mls/hr .Bolus ONE Administration Sodium Chloride 1,000 mls @ 125 mls/hr 07/15/18 15:30 Normal Saline IV ASDIRECTED HILDA Departure - Departure Time of Disposition: 15:10 Disposition: Refer to Observation Condition: Serious Clinical Impression: Pancytopenia, Dehydration - My Orders Last 24 Hours: My Active Orders 07/15/18 12:30 Sodium Chloride 0.9% [Saline Flush] 10 ml FLUSH ASDIRECTED PRN Sodium Chloride 0.9% [Saline Flush] 2.5 ml FLUSH ASDIRECTED PRN Saline Lock Insert [OM.PC] Stat 07/15/18 12:33 Blood Glucose Check, Bedside [RC] ONETIME 07/15/18 12:50 TYPE AND SCREEN [BBK] Stat - Assessment/Plan Last 24 Hours: My Active Orders 07/15/18 12:30 Sodium Chloride 0.9% [Saline Flush] 10 ml FLUSH ASDIRECTED PRN Sodium Chloride 0.9% [Saline Flush] 2.5 ml FLUSH ASDIRECTED PRN Saline Lock Insert [OM.PC] Stat 07/15/18 12:33 Blood Glucose Check, Bedside [RC] ONETIME 07/15/18 12:50 TYPE AND SCREEN [BBK] Stat
[2018-07-15 13:38] LABS: CHLORIDE,CL 93 mmol/L (98-107); SODIUM,NA 131 mmol/L (136-148)
[2018-07-15] MEDS ORDERED: Ondansetron 4 MG/2 ML SDV IVPUSH PRN (14:40)
[2018-07-15] MEDS ORDERED: Acetaminophen 325 MG Tab PO PRN (14:40)
[2018-07-15] MEDS ORDERED: Sodium Chloride 0.9% 1,000 ML IV SCH ×2 (15:30→15:51)
--- NOTE | 2018-07-15 15:32 | PCM.HP ---
H&P History of Present Illness - General Date of Service: 07/15/18 Admit Problem/Dx: Admission Diagnosis/Problem Admission Diagnosis/Problem Anemia Source of Information: Patient History Limitations: Reports: No Limitations - History of Present Illness Initial Comments - Free Text/Narative: This 73 year old male with pmh of HTN, DM type 2, and myelodysplastic syndrome, who stopped chemotherapy in November presented to the ED today with concerns for low blood pressure, dizziness and not feeling well. [facility] and he was noted to be hypotensive, bp of 80/40. He reports he is due to have platelet transfusion tomorrow. He reports he hasn't been eating well due to nausea. He reports not being able to keep anything down for a few days not. Denies diarrhea or constipation. No black or bloody BMs. Urinating ok , no pain. No chest pain or SOB. no cough. Does report a subjective fever and chills. He reports chronic abdominal pain, but this is secondary to his MDS and has been taking pain medication for this for awhile, it is not new per patient. He reports daily epitaxis, but does not last very long. In the ED, he is noted to be pancytopenic with Hgb 5.6, platelets 3,000 and WBC 1.29. Na 131 and K+3.1. He was given 1 L bolus in the ED and will be admitted for transfusion of PRBCs and platelets. - Related Data Allergies/Adverse Reactions: Allergies Allergy/AdvReac Type Severity Reaction Status Date / Time No Known Allergies Allergy Verified 07/15/18 12:36 Home Medications: Home Meds Escitalopram Oxalate 10 mg PO DAILY 09/02/14 [History] atorvaSTATin Calcium [Atorvastatin Calcium] 40 mg PO DAILY 09/02/14 [History] Dicyclomine [Bentyl] 10 mg PO Q4H PRN 12/19/16 [History] Esomeprazole [NexIUM] 40 mg PO ACBREAKFAST 12/19/16 [History] Ferrous Sulfate 325 mg PO TID 12/19/16 [History] Insulin Glarg,Human.Rec.Analog [LantUS Solostar] 50 units SUBCUT BEDTIME [History] Latanoprost 1 drop OP BEDTIME 12/19/16 [History] Lisinopril 10 mg PO DAILY 12/19/16 [History] Potassium Chloride 20 meq PO WITHLUNCH 12/19/16 [History] azaTHIOprine [Imuran] 50 mg PO WITHLUNCH 12/19/16 [History] predniSONE [Prednisone] 10 mg PO WITHDINNER 12/19/16 [History] Clindamycin HCl [Cleocin] 450 mg PO Q8H #63 cap 12/20/16 [Rx] Past Medical History - Past Health History Medical/Surgical History: Denies Medical/Surgical History HEENT History: Reports: Impaired Vision Other HEENT History: wears glasses Cardiovascular History: Reports: High Cholesterol, Hypertension. Denies: Afib, Blood Clots/VTE/DVT Respiratory History: Reports: None Gastrointestinal History: Reports: Inflammatory Bowel Disease Other Gastrointestinal History: colitis Genitourinary History: Reports: None Musculoskeletal History: Reports: Arthritis Psychiatric History: Reports: Anxiety, Depression Endocrine/Metabolic History: Reports: Diabetes, Type II Oncologic (Cancer) History: Reports: Other (See Below) Other Oncologic History: MDS in bone marrow & blood - Past Surgical History Neurological Surgical History: Reports: None Social & Family History - Family History Family Medical History: Noncontributory - Tobacco Use Smoking Status *Q: Former Smoker Packs/Tins Daily: 3 Used Tobacco, but Quit: Yes Month/Year Tobacco Last Used: 40 Second Hand Smoke Exposure: No - Caffeine Use Caffeine Use: Reports: None - Recreational Drug Use Recreational Drug Use: No - Living Situation & Occupation Living situation: Reports: Occupation: Retired H&P Review of Systems - Review of Systems: Review Of Systems: See Below General: Reports: Fever, Chills, Malaise HEENT: Reports: No Symptoms. Denies: Headaches, Sinus Congestion, Sore Throat, Vertigo Pulmonary: Reports: No Symptoms. Denies: Shortness of Breath, Cough, Sputum Cardiovascular: Reports: No Symptoms. Denies: Chest Pain, Palpitations, Orthopnea, Edema Gastrointestinal: Reports: Abdominal Pain (chronic RLQ) Genitourinary: Reports: No Symptoms. Denies: Dysuria, Frequency, Burning, Retention, Flank Pain Musculoskeletal: Reports: No Symptoms Skin: Reports: No Symptoms Psychiatric: Reports: No Symptoms Neurological: Reports: No Symptoms Hematologic/Lymphatic: Reports: Anemia Exam - Exam Exam: See Below - Vital Signs Vital Signs: Last Vital Signs Temp 97.5 F 07/15/18 14:40 Pulse 86 07/15/18 14:40 Resp 20 07/15/18 14:40 BP 123/66 07/15/18 14:40 Pulse Ox 97 07/15/18 14:40 Weight: 69.127 kg - Exam General: Alert, Oriented, Cooperative, Other (very pale) HEENT: Conjunctiva Clear. No: Mucosa Moist & [place] (pale) Neck: Supple, Trachea Midline, Full Range of Motion Lungs: Clear to Auscultation, Normal Respiratory Effort Cardiovascular: Regular Rate, Regular Rhythm, Normal S1, Normal S2. No: Systolic Murmur GI/Abdominal Exam: Normal Bowel Sounds, Soft, Mass (RLQ, reports this is chronic with abdominal pain) Extremities: Normal Inspection, Normal Range of Motion, Non-Tender, No Pedal Edema Skin: Dry, Cool, Other (pale) Neuro Extensive - Mental Status: Alert, Oriented x3 Neuro Extensive - Motor, Sensory, Reflexes: CN II-XII Intact Psychiatric: Alert, Normal Affect, Normal Mood - Patient Data Lab Results Last 24 hrs: Laboratory Results - last 24 hr 07/15/18 07/15/18 07/15/18 Range/Units 12:50 12:50 12:50 WBC 1.29 L (4.0-11.0) K/uL RBC 1.90 L (4.50-5.90) M/uL Hgb 5.6 L (13.0-17.0) g/dL Hct 17.0 L (38.0-50.0) % MCV 89.5 (80.0-98.0) fL MCH 29.5 (27.0-32.0) pg MCHC 32.9 (31.0-37.0) g/dL RDW Std Deviation 58.5 (28.0-62.0) fl RDW Coeff of Eh 18 H (11.0-15.0) % Plt Count 3 L* (150-400) K/uL Add Manual Diff YES Neutrophils % (Manual) 25 L (48.0-80.0) % Band Neutrophils % 1 % Lymphocytes % (Manual) 73 H (16.0-40.0) % Monocytes % (Manual) 1 (0.0-15.0) % Nucleated RBC % 1.3 /100WBC Absolute Seg Neuts 0.3 L (1.4-5.7) Band Neutrophils # 0 Lymphocytes # (Manual) 0.9 (0.6-2.4) Monocytes # (Manual) 0.0 (0.0-0.8) Nucleated RBCs # 0 K/uL Sodium 131 L (136-148) mmol/L Potassium 3.1 L (3.5-5.1) mmol/L Chloride 93 L (98-107) mmol/L Carbon Dioxide 29.1 (21.0-32.0) mmol/L BUN 11 (7.0-18.0) mg/dL Creatinine 1.0 (0.8-1.3) mg/dL Est Cr Clr Drug Dosing 62.37 mL/min Estimated GFR (MDRD) > 60.0 ml/min Glucose 270 H (74-106) mg/dL POC Glucose (60-110) mg/dL Calcium 8.2 L (8.5-10.1) mg/dL Total Bilirubin 0.9 (0.2-1.0) mg/dL AST 15 (15-37) IU/L ALT 12 L (14-63) IU/L Alkaline Phosphatase 57 (46-116) U/L Total Protein 7.5 (6.4-8.2) g/dL Albumin 2.3 L (3.4-5.0) g/dL Globulin 5.2 H (2.6-4.0) g/dL Albumin/Globulin Ratio 0.4 L (0.9-1.6) Blood Type O POSITIVE Antibody Screen NEGATIVE Crossmatch See Detail 07/15/18 Range/Units 13:08 WBC (4.0-11.0) K/uL RBC (4.50-5.90) M/uL Hgb (13.0-17.0) g/dL Hct (38.0-50.0) % MCV (80.0-98.0) fL MCH (27.0-32.0) pg MCHC (31.0-37.0) g/dL RDW Std Deviation (28.0-62.0) fl RDW Coeff of Eh (11.0-15.0) % Plt Count (150-400) K/uL Add Manual Diff Neutrophils % (Manual) (48.0-80.0) % Band Neutrophils % % Lymphocytes % (Manual) (16.0-40.0) % Monocytes % (Manual) (0.0-15.0) % Nucleated RBC % /100WBC Absolute Seg Neuts (1.4-5.7) Band Neutrophils # Lymphocytes # (Manual) (0.6-2.4) Monocytes # (Manual) (0.0-0.8) Nucleated RBCs # K/uL Sodium (136-148) mmol/L Potassium (3.5-5.1) mmol/L Chloride (98-107) mmol/L Carbon Dioxide (21.0-32.0) mmol/L BUN (7.0-18.0) mg/dL Creatinine (0.8-1.3) mg/dL Est Cr Clr Drug Dosing mL/min Estimated GFR (MDRD) ml/min Glucose (74-106) mg/dL POC Glucose 251 H (60-110) mg/dL Calcium (8.5-10.1) mg/dL Total Bilirubin (0.2-1.0) mg/dL AST (15-37) IU/L ALT (14-63) IU/L Alkaline Phosphatase (46-116) U/L Total Protein (6.4-8.2) g/dL Albumin (3.4-5.0) g/dL Globulin (2.6-4.0) g/dL Albumin/Globulin Ratio (0.9-1.6) Blood Type Antibody Screen Crossmatch Result Diagrams: 07/15/18 12:50 07/15/18 12:50 *Q Meaningful Use (ADM) - VTE *Q VTE Pharmacological Contraindications *Q: Risk of Bleeding - Problem List (1) Dehydration SNOMED Code(s): 47295080 ICD Code: E86.0 - DEHYDRATION Status: Acute Current Visit: Yes (2) Nausea SNOMED Code(s): 477809410 ICD Code: R11.0 - NAUSEA Status: Acute Current Visit: Yes (3) Hypotension SNOMED Code(s): 27373251 ICD Code: I95.9 - HYPOTENSION, UNSPECIFIED Status: Acute Current Visit: Yes (4) Myelodysplastic syndrome SNOMED Code(s): 998656881 ICD Code: D46.9 - MYELODYSPLASTIC SYNDROME, UNSPECIFIED Status: Chronic Current Visit: Yes (5) DM type 2 (diabetes mellitus, type 2) SNOMED Code(s): 31451603 ICD Code: E11.9 - TYPE 2 DIABETES MELLITUS WITHOUT COMPLICATIONS Status: Chronic Current Visit: No Qualifiers: Diabetes mellitus correction insulin use: with intermodal customer service use Diabetes mellitus complication status: without complication Qualified Code(s): E11.9 - Type 2 diabetes mellitus without complications; Z79.4 - skilled nursing (current) use of insulin (6) HTN (hypertension) SNOMED Code(s): 72740754 ICD Code: I10 - ESSENTIAL (PRIMARY) HYPERTENSION Status: Chronic Current Visit: No Qualifiers: Hypertension type: essential hypertension Qualified Code(s): I10 - Essential (primary) hypertension (7) Ulcerative colitis SNOMED Code(s): 19960448 ICD Code: K51.90 - ULCERATIVE COLITIS, UNSPECIFIED, WITHOUT COMPLICATIONS Status: Chronic Current Visit: No Qualifiers: Ulcerative colitis location: unspecified ulcerative colitis location Digestive disease complication type: without complication Qualified Code(s): K51.90 - Ulcerative colitis, unspecified, without complications Problem List Initiated/Reviewed/Updated: Yes Orders Last 24hrs: Active Orders 24 hr Category Date Time Status Patient Status [ADT] Stat ADT 07/15/18 14:24 Active Blood Glucose Check, Bedside [RC] ONETIME Care 07/15/18 12:33 Active Blood Glucose Check, Bedside [RC] TIDAC Care 07/15/18 15:21 Ordered Communication Order [RC] ROUTINE Care 07/15/18 15:25 Ordered Intake and Output [RC] QSHIFT Care 07/15/18 14:41 Active May Shower [RC] ASDIRECTED Care 07/15/18 14:40 Active Oxygen Therapy [RC] PRN Care 07/15/18 14:41 Active Up With Assistance [RC] ASDIRECTED Care 07/15/18 14:40 Active VTE/DVT Education [RC] PER UNIT ROUTINE Care 07/15/18 14:41 Active Verify Patient Consent Obtain [RC] ASDIRECTED Care 07/15/18 15:23 Ordered Vital Signs [RC] Q4H Care 07/15/18 14:41 Active Chest 2V [CR] Urgent Exams 07/15/18 14:40 Ordered BASIC METABOLIC PANEL,BMP [CHEM] AM Lab 07/16/18 05:11 Ordered CBC WITH AUTO DIFF [HEME] AM Lab 07/16/18 05:11 Ordered PLATELETS APH [BBK] Stat Lab 07/15/18 12:50 Results RED BLOOD CELLS LP [BBK] Stat Lab 07/15/18 12:50 Results TYPE AND SCREEN [BBK] Stat Lab 07/15/18 12:50 Results UA W/MICROSCOPIC [URIN] Routine Lab 07/15/18 14:40 Ordered Acetaminophen [Tylenol] Med 07/15/18 14:40 Active 650 mg PO Q4H PRN Insulin Aspart [NovoLOG] Med 07/15/18 17:00 Ordered See Protocol SUBCUT TIDAC Ondansetron [Zofran] Med 07/15/18 14:40 Active 4 mg IVPUSH Q4H PRN Pantoprazole [ProTONIX IV] Med 07/15/18 15:30 Ordered 40 mg IVPUSH Q24H Potassium Chloride 40 MEQ in Sodium Chloride 0.9% @ 125 Med 07/15/18 15:21 Ordered MLS/HR(500ml) Potassium Chloride 40 meq Sodium Chloride 0.9% [Normal Saline] 480 ml IV ONETIME Sodium Chloride 0.9% @ 125 MLS/HR (1,000ml) Med 07/15/18 15:30 Ordered Sodium Chloride 0.9% [Normal Saline] 1,000 ml IV ASDIRECTED Sodium Chloride 0.9% [Saline Flush] Med 07/15/18 12:30 Active 10 ml FLUSH ASDIRECTED PRN Sodium Chloride 0.9% [Saline Flush] Med 07/15/18 12:30 Active 2.5 ml FLUSH ASDIRECTED PRN Saline Lock Insert [OM.PC] Stat Oth 07/15/18 12:30 Ordered Transfuse Red Blood Cells [COMM] Stat Oth 07/15/18 14:32 Ordered Resuscitation Status Routine Resus Stat 07/15/18 14:40 Ordered Medication Orders Acetaminophen (Tylenol) 650 mg PO Q4H PRN PRN Reason: Pain (mild 1-3) Potassium Chloride 40 meq/ (Sodium Chloride) 500 mls @ 125 mls/hr IV ONETIME ONE Stop: 07/15/18 19:39 Sodium Chloride (Normal Saline) 1,000 mls @ 125 mls/hr IV ASDIRECTED HILDA Insulin Aspart (Novolog) 0 unit SUBCUT TIDAC HILDA; Protocol Ondansetron HCl (Zofran) 4 mg IVPUSH Q4H PRN PRN Reason: nausea Pantoprazole Sodium (Protonix Iv) 40 mg IVPUSH Q24H HILDA Sodium Chloride (Saline Flush) 10 ml FLUSH ASDIRECTED PRN PRN Reason: Keep Vein Open Sodium Chloride (Saline Flush) 2.5 ml FLUSH ASDIRECTED PRN PRN Reason: Keep Vein Open Assessment/Plan Comment:: This 73 year old male admitted with MDS, in need of PRBC and platelet transfusion also complains of nausea 1. MDS with pancytopenia: Will order 2 units of PRBCs and platelets. Transfuse PRBCs tonight and await arrival of platelets. WBC at baseline. 2. Subjective fever: Check CXR and UA. Monitor for fever 3. Dehydration: Will give IVFs. Zofran for nausea. Supplement potassium tonight , recheck in am. 4. DM Type 2: Novolog SSI. Monitor BS with meals. 5. HTN: Hypotension noted, Hold lisinopril. Monitor after IVFs VTE prophylaxis: SCDs only Dispo: 1 day CODE STATUS: DNR/DNI
[2018-07-15] MEDS ORDERED: Potassium Chloride 40 MEQ in Sodium Chloride 0.9% 480 ML IV ONE (15:40)
[2018-07-15] MEDS: Pantoprazole 40 MG Vial IVPUSH SCH (16:12)
[2018-07-15] MEDS ORDERED: Acetaminophen/oxyCODONE 325-5 MG Tab PO PRN (18:02)
[2018-07-15] MEDS: Insulin Aspart 100 Units/ML 3 ML Pen SUBCUT SCH (18:15)
[2018-07-15] MEDS: Insulin Glargine,Human Rec. Analog 100 Units/ML 3 ML Pen SUBCUT SCH (22:07)
--- NOTE | 2018-07-15 23:59 | CR ---
INDICATION: Chills COMPARISON: 12/19/2016 FINDINGS: PA and lateral views of the chest were obtained. The lungs remain clear. No focal or diffuse infiltrates are present. The heart remains normal in size. The mediastinum is normal in appearance. The osseous structures are normal in appearance for the patient`s age. IMPRESSION: Normal chest two views. Dictated by Sami Edgar MD @ Jul 15 2018 11:57PM Signed by Dr. Sami Edgar @ Jul 15 2018 11:58PM
[2018-07-16 06:04] LABS: CHLORIDE,CL 99 mmol/L (98-107); SODIUM,NA 133 mmol/L (136-148)
[2018-07-16] MEDS: Insulin Aspart 100 Units/ML 3 ML Pen SUBCUT SCH ×3 (07:55→17:05)
[2018-07-16] MEDS ORDERED: Escitalopram 10 MG Tab PO SCH (09:00)
[2018-07-16] MEDS: Insulin Glargine,Human Rec. Analog 100 Units/ML 3 ML Pen SUBCUT SCH (09:17)
--- NOTE | 2018-07-16 14:35 | PCM.DCSUM1 ---
Discharge Summary - Hospital Course Brief History: This 73 year old male with pmh of HTN, DM type 2, and myelodysplastic syndrome, who stopped chemotherapy in November presented to the ED today with concerns for low blood pressure, dizziness and not feeling well. [facility] Davis and he was noted to be hypotensive, bp of 80/40. He reports he is due to have platelet transfusion tomorrow. He reports he hasn't been eating well due to nausea. He reports not being able to keep anything down for a few days not. Denies diarrhea or constipation. No black or bloody BMs. Urinating ok, no pain. No chest pain or SOB. no cough. Does report a subjective fever and chills. He reports chronic abdominal pain, but this is secondary to his MDS and has been taking pain medication for this for awhile, it is not new per patient. He reports daily epitaxis, but does not last very long. In the ED, he is noted to be pancytopenic with Hgb 5.6, platelets 3,000 and WBC 1.29. Na 131 and K+3.1. He was given 1 L bolus in the ED and will be admitted for transfusion of PRBCs and platelets. Diagnosis: Stroke: No - Discharge Data Discharge Date: 07/16/18 Discharge Disposition: Home, Self-Care 01 Condition: Good - Discharge Diagnosis/Problem(s) (1) Dehydration SNOMED Code(s): 32231610 ICD Code: E86.0 - DEHYDRATION Status: Acute Current Visit: Yes (2) Nausea SNOMED Code(s): 751175947 ICD Code: R11.0 - NAUSEA Status: Acute Current Visit: Yes (3) Hypotension SNOMED Code(s): 58237222 ICD Code: I95.9 - HYPOTENSION, UNSPECIFIED Status: Acute Current Visit: Yes (4) Myelodysplastic syndrome SNOMED Code(s): 199465307 ICD Code: D46.9 - MYELODYSPLASTIC SYNDROME, UNSPECIFIED Status: Chronic Current Visit: Yes (5) DM type 2 (diabetes mellitus, type 2) SNOMED Code(s): 36305414 ICD Code: E11.9 - TYPE 2 DIABETES MELLITUS WITHOUT COMPLICATIONS Status: Chronic Current Visit: No Qualifiers: Diabetes mellitus room manager insulin use: with room manager use Diabetes mellitus complication status: without complication Qualified Code(s): E11.9 - Type 2 diabetes mellitus without complications; Z79.4 - retirement (current) use of insulin (6) HTN (hypertension) SNOMED Code(s): 66129762 ICD Code: I10 - ESSENTIAL (PRIMARY) HYPERTENSION Status: Chronic Current Visit: No Qualifiers: Hypertension type: essential hypertension Qualified Code(s): I10 - Essential (primary) hypertension (7) Ulcerative colitis SNOMED Code(s): 62013769 ICD Code: K51.90 - ULCERATIVE COLITIS, UNSPECIFIED, WITHOUT COMPLICATIONS Status: Chronic Current Visit: No Qualifiers: Ulcerative colitis location: unspecified ulcerative colitis location Digestive disease complication type: without complication Qualified Code(s): K51.90 - Ulcerative colitis, unspecified, without complications - Patient Instructions Diet: Regular Diet as Tolerated, Diabetic Diet Activity: As Tolerated Showering/Bathing: May Shower Notify Provider of: Fever, Increased Pain, Swelling and Redness, Drainage, Nausea and/or Vomiting - Discharge Plan *PRESCRIPTION DRUG MONITORING PROGRAM REVIEWED*: Not Applicable *COPY OF PRESCRIPTION DRUG MONITORING REPORT IN PATIENT JULIAN: Not Applicable Home Medications: Home Meds Escitalopram [Lexapro] 20 mg PO DAILY 07/15/18 [History] Insulin Glarg,Human.Rec.Analog [Lantus] 25 unit SQ BID 07/15/18 [History] Lisinopril 10 mg PO DAILY 07/15/18 [History] Multivitamin [One Daily Essential] 1 each PO DAILY 07/15/18 [History] Ondansetron HCl [Zofran] 8 mg PO Q8H PRN 07/15/18 [History] oxyCODONE HCl/Acetaminophen [Oxycodone-Acetaminophen 5-300] 1 - 2 each PO Q4H PRN 07/15/18 [History] Referrals: PCP,Unknown [Primary Care Provider] - (arrange follow up with PCP 1 week) - Discharge Summary/Plan Comment DC Time >30 min.: No Discharge Summary/Plan Comment: Discharge Diagnoses: STEVEN Zavaleta was admitted for platelet and blood transfusion due to acute dizziness and not feeling well. He was given 2 units platelets and a 2 units PRBCs overnight. Platelets elevated to 47,000 and Hgb increase to 6.9. We gave another unit of blood, to total 3 units to get Hgb above 7. He is eager to be discharged home today, he is feeling much better. He is to return to clinic or ED if concerns should arise. - General Info Date of Service: 07/16/18 Admission Dx/Problem (Free Text: Admission Diagnosis/Problem Admission Diagnosis/Problem Anemia Subjective Update: Reports feeling good today. Eating and not nauseated. No concerns. Abdominal pain is better. Functional Status: Reports: Pain Controlled, Tolerating Diet, Ambulating, Urinating - Review of Systems General: Reports: No Symptoms. Denies: Fever, Weakness, Fatigue HEENT: Reports: No Symptoms. Denies: Headaches, Sore Throat, Visual Changes Pulmonary: Reports: No Symptoms. Denies: Shortness of Breath Cardiovascular: Reports: No Symptoms. Denies: Chest Pain Gastrointestinal: Reports: No Symptoms. Denies: Abdominal Pain, Nausea, Vomiting Genitourinary: Reports: No Symptoms Musculoskeletal: Reports: No Symptoms Skin: Reports: No Symptoms Neurological: Reports: No Symptoms Psychiatric: Reports: No Symptoms - Patient Data Vitals - Most Recent: Last Vital Signs Temp 98.9 F 07/16/18 12:42 Pulse 77 07/16/18 12:42 Resp 16 07/16/18 12:42 BP 137/64 07/16/18 12:42 Pulse Ox 96 07/16/18 12:42 Weight - Most Recent: 69.127 kg I&O - Last 24 hours: Intake & Output 07/15/18 07/16/18 07/16/18 22:59 06:59 14:59 Intake Total 628 689 600 Output Total 200 Balance 628 489 600 Lab Results - Last 24 hrs: Laboratory Results - last 24 hr 07/15/18 07/15/18 07/15/18 Range/Units 12:50 12:50 17:26 WBC (4.0-11.0) K/uL RBC (4.50-5.90) M/uL Hgb (13.0-17.0) g/dL Hct (38.0-50.0) % MCV (80.0-98.0) fL MCH (27.0-32.0) pg MCHC (31.0-37.0) g/dL RDW Std Deviation (28.0-62.0) fl RDW Coeff of Eh (11.0-15.0) % Plt Count (150-400) K/uL Add Manual Diff Neutrophils % (Manual) (48.0-80.0) % Band Neutrophils % % Lymphocytes % (Manual) (16.0-40.0) % Monocytes % (Manual) (0.0-15.0) % Eosinophils % (Manual) (0.0-7.0) % Nucleated RBC % /100WBC Absolute Seg Neuts (1.4-5.7) Band Neutrophils # Lymphocytes # (Manual) (0.6-2.4) Monocytes # (Manual) (0.0-0.8) Eosinophils # (Manual) (0.0-0.7) Nucleated RBCs # K/uL Sodium (136-148) mmol/L Potassium (3.5-5.1) mmol/L Chloride (98-107) mmol/L Carbon Dioxide (21.0-32.0) mmol/L BUN (7.0-18.0) mg/dL Creatinine (0.8-1.3) mg/dL Est Cr Clr Drug Dosing mL/min Estimated GFR (MDRD) ml/min Glucose (74-106) mg/dL POC Glucose 223 H (60-110) mg/dL Calcium (8.5-10.1) mg/dL Magnesium 1.8 (1.8-2.4) mg/dL Urine Color Urine Appearance Urine pH (5.0-8.0) Ur Specific [place] (1.001-1.035) Urine Protein (NEGATIVE) mg/dL Urine Glucose (UA) (NEGATIVE) mg/dL Urine Ketones (NEGATIVE) mg/dL Urine Occult Blood (NEGATIVE) Urine Nitrite (NEGATIVE) Urine Bilirubin (NEGATIVE) Urine Ictotest Urine Urobilinogen (<2.0) EU/dL Ur Leukocyte Esterase (NEGATIVE) Urine RBC (0-2/HPF) Urine WBC (0-5/HPF) Ur Epithelial Cells (NONE-FEW) Urine Bacteria (NEGATIVE) Hyaline Casts (0-2/LPF) Urine Mucus (NONE-MOD) Blood Type O POSITIVE Antibody Screen NEGATIVE Crossmatch See Detail 07/15/18 07/15/18 07/16/18 Range/Units 19:35 21:39 05:12 WBC 1.90 L (4.0-11.0) K/uL RBC 2.29 L (4.50-5.90) M/uL Hgb 6.9 L (13.0-17.0) g/dL Hct 19.8 L (38.0-50.0) % MCV 86.5 (80.0-98.0) fL MCH 30.1 (27.0-32.0) pg MCHC 34.8 (31.0-37.0) g/dL RDW Std Deviation 54.7 (28.0-62.0) fl RDW Coeff of Eh 18 H (11.0-15.0) % Plt Count 47 L (150-400) K/uL Add Manual Diff YES Neutrophils % (Manual) 21 L (48.0-80.0) % Band Neutrophils % 4 % Lymphocytes % (Manual) 60 H (16.0-40.0) % Monocytes % (Manual) 14 (0.0-15.0) % Eosinophils % (Manual) 1 (0.0-7.0) % Nucleated RBC % 0.0 /100WBC Absolute Seg Neuts 0.4 L (1.4-5.7) Band Neutrophils # 0.1 Lymphocytes # (Manual) 1.1 (0.6-2.4) Monocytes # (Manual) 0.3 (0.0-0.8) Eosinophils # (Manual) 0.0 (0.0-0.7) Nucleated RBCs # 0 K/uL Sodium (136-148) mmol/L Potassium (3.5-5.1) mmol/L Chloride (98-107) mmol/L Carbon Dioxide (21.0-32.0) mmol/L BUN (7.0-18.0) mg/dL Creatinine (0.8-1.3) mg/dL Est Cr Clr Drug Dosing mL/min Estimated GFR (MDRD) ml/min Glucose (74-106) mg/dL POC Glucose 180 H (60-110) mg/dL Calcium (8.5-10.1) mg/dL Magnesium (1.8-2.4) mg/dL Urine Color YELLOW Urine Appearance SLT CLOUDY Urine pH 6.0 (5.0-8.0) Ur Specific [place] 1.020 (1.001-1.035) Urine Protein 30 H (NEGATIVE) mg/dL Urine Glucose (UA) 100 H (NEGATIVE) mg/dL Urine Ketones NEGATIVE (NEGATIVE) mg/dL Urine Occult Blood NEGATIVE (NEGATIVE) Urine Nitrite NEGATIVE (NEGATIVE) Urine Bilirubin SMALL H (NEGATIVE) Urine Ictotest NEGATIVE Urine Urobilinogen >=8.0 H (<2.0) EU/dL Ur Leukocyte Esterase NEGATIVE (NEGATIVE) Urine RBC 0-2 (0-2/HPF) Urine WBC 2-5 (0-5/HPF) Ur Epithelial Cells FEW (NONE-FEW) Urine Bacteria FEW (NEGATIVE) Hyaline Casts 0-3 (0-2/LPF) Urine Mucus MANY (NONE-MOD) Blood Type Antibody Screen Crossmatch 07/16/18 07/16/18 07/16/18 Range/Units 05:12 06:09 11:25 WBC (4.0-11.0) K/uL RBC (4.50-5.90) M/uL Hgb (13.0-17.0) g/dL Hct (38.0-50.0) % MCV (80.0-98.0) fL MCH (27.0-32.0) pg MCHC (31.0-37.0) g/dL RDW Std Deviation (28.0-62.0) fl RDW Coeff of Eh (11.0-15.0) % Plt Count (150-400) K/uL Add Manual Diff Neutrophils % (Manual) (48.0-80.0) % Band Neutrophils % % Lymphocytes % (Manual) (16.0-40.0) % Monocytes % (Manual) (0.0-15.0) % Eosinophils % (Manual) (0.0-7.0) % Nucleated RBC % /100WBC Absolute Seg Neuts (1.4-5.7) Band Neutrophils # Lymphocytes # (Manual) (0.6-2.4) Monocytes # (Manual) (0.0-0.8) Eosinophils # (Manual) (0.0-0.7) Nucleated RBCs # K/uL Sodium 133 L (136-148) mmol/L Potassium 3.2 L (3.5-5.1) mmol/L Chloride 99 (98-107) mmol/L Carbon Dioxide 26.6 (21.0-32.0) mmol/L BUN 9 (7.0-18.0) mg/dL Creatinine 0.7 L (0.8-1.3) mg/dL Est Cr Clr Drug Dosing 90.52 mL/min Estimated GFR (MDRD) > 60.0 ml/min Glucose 82 (74-106) mg/dL POC Glucose 93 97 (60-110) mg/dL Calcium 7.9 L (8.5-10.1) mg/dL Magnesium (1.8-2.4) mg/dL Urine Color Urine Appearance Urine pH (5.0-8.0) Ur Specific [place] (1.001-1.035) Urine Protein (NEGATIVE) mg/dL Urine Glucose (UA) (NEGATIVE) mg/dL Urine Ketones (NEGATIVE) mg/dL Urine Occult Blood (NEGATIVE) Urine Nitrite (NEGATIVE) Urine Bilirubin (NEGATIVE) Urine Ictotest Urine Urobilinogen (<2.0) EU/dL Ur Leukocyte Esterase (NEGATIVE) Urine RBC (0-2/HPF) Urine WBC (0-5/HPF) Ur Epithelial Cells (NONE-FEW) Urine Bacteria (NEGATIVE) Hyaline Casts (0-2/LPF) Urine Mucus (NONE-MOD) Blood Type Antibody Screen Crossmatch Med Orders - Current: Current Medications Acetaminophen (Tylenol) 650 mg PO Q4H PRN PRN Reason: Pain (mild 1-3) Escitalopram Oxalate (Lexapro) 20 mg PO DAILY [facility] Last Admin: 07/16/18 09:18 Dose: 20 mg Insulin Aspart (Novolog) 0 unit SUBCUT TIDAC [facility]; Protocol Last Admin: 07/16/18 12:31 Dose: Not Given Insulin Glargine (Lantus Solostar) 25 units SUBCUT BID [facility] Last Admin: 07/16/18 09:17 Dose: 25 units Ondansetron HCl (Zofran) 4 mg IVPUSH Q4H PRN PRN Reason: nausea Oxycodone/Acetaminophen (Percocet 325-5 Mg) 1 tab PO Q4H PRN PRN Reason: Pain Pantoprazole Sodium (Protonix Iv) 40 mg IVPUSH Q24H [facility] Last Admin: 07/15/18 16:12 Dose: 40 mg Sodium Chloride (Saline Flush) 10 ml FLUSH ASDIRECTED PRN PRN Reason: Keep Vein Open Sodium Chloride (Saline Flush) 2.5 ml FLUSH ASDIRECTED PRN PRN Reason: Keep Vein Open Discontinued Medications Sodium Chloride (Normal Saline) 1,000 mls @ 999 mls/hr IV .Bolus ONE Stop: 07/15/18 13:30 Last Admin: 07/15/18 13:25 Dose: 999 mls/hr Potassium Chloride 40 meq/ (Sodium Chloride) 500 mls @ 125 mls/hr IV ONETIME ONE Stop: 07/15/18 19:39 Last Admin: 07/15/18 16:27 Dose: 125 mls/hr Sodium Chloride (Normal Saline) 1,000 mls @ 125 mls/hr IV ASDIRECTED HILDA Sodium Chloride (Normal Saline) 1,000 mls @ 100 mls/hr IV ASDIRECTED HILDA Last Admin: 07/15/18 16:22 Dose: 100 mls/hr - Exam General: Reports: Alert, Oriented Lungs: Reports: Clear to Auscultation, Normal Respiratory Effort Cardiovascular: Reports: Regular Rate, Regular Rhythm GI/Abdominal Exam: Normal Bowel Sounds, Soft, Non-Tender Extremities: Normal Inspection, Normal Range of Motion, Non-Tender, No Pedal Edema Neurological: Reports: No New Focal Deficit Psy/Mental Status: Reports: Alert, Normal Affect, Normal Mood *Q Meaningful Use (DIS) - VTE *Q VTE Pharmacological Contraindications *Q: Risk of Bleeding
[2018-07-16] MEDS: Pantoprazole 40 MG Vial IVPUSH SCH (17:12)
[2018-07-16 17:47] VITALS: BP 131/68
== END 2018-07-16 17:30 | disposition home or self-care (01) ==
LOC: MW.ED 12:28 → MW.MS 14:24
PROVIDERS: ADMIT Internal Medicine; ATTEND Internal Medicine
DX: I95.9 Hypotension, unspecified (principal); D46.9 Myelodysplastic syndrome, unspecified; D61.818 Other pancytopenia; I10 Essential (primary) hypertension; E11.9 Type 2 diabetes mellitus without complications; E86.0 Dehydration; K51.90 Ulcerative colitis, unspecified, without complications; Z79.4 Long term (current) use of insulin; Z79.899 Other long term (current) drug therapy
CPT/HCPCS: 36415; 36430; 71046; 80048; 80053; 81001; 82962; 83735; 85025; 86850; 86900; 86901; 86920; 86921; 86922; 93005; 96361; 96374; 96375; 96376; 99285; A9270; C9113; G0378; J1815; J3480; J7040; P9016; P9034; 96360; 99284